=== PATIENT | male | born 1970 | race Two or more races ===

== ENCOUNTER 2016-11-30 10:13 | Emergency (ER) | payer MEDICAID, OTHER ==
[~2016-11-30] VITALS: Ht 185.4 cm; Wt 104.3 kg
[2016-11-30] MEDS ORDERED: HYDROcodone-ACET 10/325MG TAB PO ONE (11:00)
[2016-11-30 11:04] VITALS: BP 133/85
== END 2016-11-30 11:59 | disposition home or self-care (01) ==
LOC: EDBD 10:13 → ER 10:35
DX: S46.912A Strain of unspecified muscle, fascia and tendon at shoulder and upper arm level, left arm, initial encounter (principal); F17.210 Nicotine dependence, cigarettes, uncomplicated; X58.XXXA Exposure to other specified factors, initial encounter; Y93.89 Activity, other specified; Y99.8 Other external cause status; Y92.89 Other specified places as the place of occurrence of the external cause
CPT/HCPCS: 73030